=== PATIENT | female | born 1970 | race Caucasian/White ===

== ENCOUNTER 2017-12-13 14:25 | Inpatient (IN) | payer MEDICAID, OTHER ==
[~2017-12-13] VITALS: Ht 167.6 cm; Wt 64.2 kg
[2017-12-13] MEDS ORDERED: SODIUM CHLORIDE 0.9% 1,000ML IVBOLUS ONE (15:00)
[2017-12-13] MEDS ORDERED: SODIUM CHLORIDE FLUSH 10ML SYR IVF ONE (15:00)
[2017-12-13] MEDS ORDERED: FAMOTIDINE 20 MG/2 ML IVP ONE (15:00)
[2017-12-13] MEDS ORDERED: ACETAMINOPHEN 500 MG TABLET PO ONE (15:00)
[2017-12-13 15:17] LABS: BASOPHILS # (AUTO) 0.03 x10^3/uL (0-0.1); BASOPHILS % (AUTO) 1 % (0-1); EOSINOPHILS # (AUTO) 0.03 x10^3/uL (0-0.4); EOSINOPHILS % (AUTO) 1 % (1-7); LYMPHOCYTES # (AUTO) 2.74 x10^3/uL (1-3.4); LYMPHOCYTES % (AUTO) 44 % (22-44); MD NO; MEAN CORPUSCULAR HEMOGLOBIN 32.3 pg (27.0-34.8); MEAN CORPUSCULAR HGB CONC 34.5 g/dL (32.4-35.8); MEAN CORPUSCULAR VOLUME 93.7 fL (80-100); MEAN PLATELET VOLUME 7.5 fL (7.4-10.4); MONOCYTES # (AUTO) 0.47 x10^3/uL (0.2-0.8); MONOCYTES % (AUTO) 8 % (2-9); NEUTROPHILS % (AUTO) 48 % (42-75); PLATELET COUNT 256 x10^3/uL (130-400); RED BLOOD COUNT 5.13 x10^6/uL (3.82-5.3); RED CELL DISTRIBUTION WIDTH 15.6 % (9.6-15.2)
[2017-12-13 15:22] LABS: INTERNATIONAL NORMALIZED RATIO 1.03 (0.93-1.1); PROTHROMBIN TIME 10.6 Seconds (9.6-11.5)
[2017-12-13 15:23] LABS: ALANINE AMINOTRANSFERASE 54 U/L (12-78); ANION GAP 15 mmol/L (5-15); CALCIUM 8.6 mg/dL (8.5-10.1); CHLORIDE 99 mmol/L (98-107); CREATININE 0.55 mg/dL (0.55-1.02)
[2017-12-13 15:25] LABS: ALKALINE PHOSPHATASE 51 U/L (45-117); BILIRUBIN,TOTAL 1.1 mg/dL (0.2-1.0); TOTAL PROTEIN 8.1 g/dL (6.4-8.2)
[2017-12-13] MEDS ORDERED: ACETAMINOPHEN 500 MG TABLET ONE (15:31)
[2017-12-13] MEDS ORDERED: FAMOTIDINE 20 MG/2 ML ONE (15:31)
[2017-12-13 16:03] LABS: MICROSCOPIC AUTO
[2017-12-13 16:05] LABS: CULTURE INDICATED? YES
[2017-12-13] MEDS ORDERED: OMNIPAQUE 350 MG/ML, 100ML BOTTLE ONE (16:47)
[2017-12-13] MEDS ORDERED: PROMETHAZINE 25 MG/ML, 1ML ONE (17:35)
[2017-12-13] MEDS ORDERED: KETOROLAC 30 MG/1 ML ONE (17:36)
[2017-12-13] MEDS ORDERED: MORPHINE SULFATE 4 MG/ML, 1ML ONE (17:36)
[2017-12-13] MEDS ORDERED: NS + 20MEQ KCL 1,000 ML IV ONE (17:39)
[2017-12-13] MEDS ORDERED: MORPHINE SULFATE 4 MG/ML, 1ML IVPush PRN (18:00)
[2017-12-13] MEDS ORDERED: PROMETHAZINE 25 MG/ML, 1ML IM ONE (18:00)
[2017-12-13] MEDS ORDERED: NS + 20MEQ KCL 1,000 ML IV SCH (18:00)
[2017-12-13] MEDS ORDERED: KETOROLAC 30 MG/1 ML IVPush ONE (18:00)
[2017-12-13] MEDS ORDERED: morphine SULFATE 10 MG/ML, 1ML IVPush PRN (19:00)
[2017-12-13] MEDS ORDERED: ONDANSETRON ODT 4 MG PO PRN (19:00)
[2017-12-13] MEDS ORDERED: LABETALOL 5MG/ML, 20ML IVPush PRN (19:00)
[2017-12-13] MEDS ORDERED: POTASSIUM CHLORIDE 20 MEQ in SODIUM CHLORIDE 0.9% 250 ML IV ONE (19:00)
[2017-12-13] MEDS ORDERED: hydrALAzine 20 MG/ML, 1ML IVPush PRN (19:00)
[2017-12-13] MEDS ORDERED: ONDANSETRON 2MG/ML, 2ML IVPush PRN (19:00)
[2017-12-13] MEDS ORDERED: POLYETHYLENE GLYCOL 17 GM PACKET PO PRN (19:00)
[2017-12-13] MEDS ORDERED: BISACODYL 10 MG SUPP PR PRN (19:00)
[2017-12-13] MEDS ORDERED: LORazepam 2 MG/ML, 1ML IV PRN ×3 (19:00)
[2017-12-13] MEDS ORDERED: DOCUSATE 100 MG CAPSULE PO PRN (19:00)
[2017-12-13 19:14] VITALS: BP 127/82
[2017-12-13] MEDS: LACTATED RINGERS 1,000 ML IV SCH (19:27)
[2017-12-13] MEDS: NICOTINE 14MG/24 HR PATCH.TD24 TD SCH (19:27)
[2017-12-13] MEDS: LORazepam 2 MG/ML, 1ML IV PRN (19:45)
[2017-12-13 19:47] VITALS: BP 127/82
[2017-12-14 00:10] VITALS: BP 129/77
[2017-12-14] MEDS: LACTATED RINGERS 1,000 ML IV SCH ×4 (00:10→21:29)
[2017-12-14] MEDS: LORazepam 2 MG/ML, 1ML IV PRN ×4 (00:11→23:57)
[2017-12-14 05:33] LABS: BASOPHILS # (AUTO) 0.03 x10^3/uL (0-0.1); BASOPHILS % (AUTO) 1 % (0-1); EOSINOPHILS # (AUTO) 0.04 x10^3/uL (0-0.4); EOSINOPHILS % (AUTO) 1 % (1-7); LYMPHOCYTES # (AUTO) 2.51 x10^3/uL (1-3.4); LYMPHOCYTES % (AUTO) 36 % (22-44); MD NO; MEAN CORPUSCULAR HEMOGLOBIN 32.3 pg (27.0-34.8); MEAN CORPUSCULAR HGB CONC 34.1 g/dL (32.4-35.8); MEAN CORPUSCULAR VOLUME 94.6 fL (80-100); MEAN PLATELET VOLUME 7.7 fL (7.4-10.4); MONOCYTES # (AUTO) 0.73 x10^3/uL (0.2-0.8); MONOCYTES % (AUTO) 11 % (2-9); NEUTROPHILS # (AUTO) 3.59 x10^3/uL (1.8-6.8); NEUTROPHILS % (AUTO) 52 % (42-75); PLATELET COUNT 198 x10^3/uL (130-400); RED BLOOD COUNT 4.46 x10^6/uL (3.82-5.3); RED CELL DISTRIBUTION WIDTH 15.9 % (9.6-15.2)
[2017-12-14 05:39] LABS: ALANINE AMINOTRANSFERASE 41 U/L (12-78); ALBUMIN 3.3 g/dL (3.4-5.0); ANION GAP 8 mmol/L (5-15); CALCIUM 7.5 mg/dL (8.5-10.1); CHLORIDE 104 mmol/L (98-107); CREATININE 0.52 mg/dL (0.55-1.02)
[2017-12-14 05:41] LABS: ALKALINE PHOSPHATASE 43 U/L (45-117); BILIRUBIN,TOTAL 1.4 mg/dL (0.2-1.0); TOTAL PROTEIN 6.5 g/dL (6.4-8.2)
[2017-12-14] MEDS ORDERED: MAGNESIUM SULFATE PMX 2GM/50ML 50 ML IV ONE (07:00)
[2017-12-14 07:19] VITALS: BP 158/85
[2017-12-14] MEDS: POTASSIUM CHLORIDE 20 MEQ, MAGNESIUM SULFATE 1 GM, THIAMINE 200 MG, FOLIC ACID 1 MG, MV... IV SCH (08:06)
[2017-12-14] MEDS: PANTOPRAZOLE 40 MG IV IVPush SCH (08:06)
[2017-12-14 12:51] VITALS: BP 146/90
[2017-12-14] MEDS: NICOTINE 14MG/24 HR PATCH.TD24 TD SCH (18:34)
[2017-12-14 19:12] VITALS: BP 131/86
[2017-12-15 01:48] VITALS: BP 137/95
[2017-12-15] MEDS: LACTATED RINGERS 1,000 ML IV SCH (04:30)
[2017-12-15 06:03] LABS: BASOPHILS # (AUTO) 0.03 x10^3/uL (0-0.1); BASOPHILS % (AUTO) 1 % (0-1); EOSINOPHILS # (AUTO) 0.08 x10^3/uL (0-0.4); EOSINOPHILS % (AUTO) 1 % (1-7); LYMPHOCYTES # (AUTO) 2.08 x10^3/uL (1-3.4); LYMPHOCYTES % (AUTO) 32 % (22-44); MD NO; MEAN CORPUSCULAR HEMOGLOBIN 32.6 pg (27.0-34.8); MEAN CORPUSCULAR HGB CONC 34.4 g/dL (32.4-35.8); MEAN CORPUSCULAR VOLUME 94.9 fL (80-100); MEAN PLATELET VOLUME 7.6 fL (7.4-10.4); MONOCYTES # (AUTO) 0.69 x10^3/uL (0.2-0.8); MONOCYTES % (AUTO) 11 % (2-9); NEUTROPHILS # (AUTO) 3.63 x10^3/uL (1.8-6.8); NEUTROPHILS % (AUTO) 56 % (42-75); PLATELET COUNT 168 x10^3/uL (130-400); RED BLOOD COUNT 4.23 x10^6/uL (3.82-5.3); RED CELL DISTRIBUTION WIDTH 15.7 % (9.6-15.2)
[2017-12-15 06:14] LABS: ALANINE AMINOTRANSFERASE 32 U/L (12-78); ANION GAP 9 mmol/L (5-15); CALCIUM 7.6 mg/dL (8.5-10.1); CHLORIDE 99 mmol/L (98-107)
[2017-12-15 06:19] LABS: ALKALINE PHOSPHATASE 42 U/L (45-117); BILIRUBIN,TOTAL 1.1 mg/dL (0.2-1.0); CHOL/HDL RATIO 1.5; CHOLESTEROL, TOTAL 139 mg/dL (140-239); HDL CHOL % 65 % (28-40); HDL CHOLESTEROL (DIRECT) 91 mg/dL (40-60); LDL CHOLESTEROL,CALCULATED 38 mg/dL (54-169); LDL/HDL RATIO 0.4 (0.5-3.0); TOTAL PROTEIN 6.3 g/dL (6.4-8.2); TRIGLYCERIDES 50 mg/dL (50-200); VLDL CHOLESTEROL 10 mg/dL (0-25)
[2017-12-15 06:38] VITALS: BP 147/82
[2017-12-15] MEDS ORDERED: MAGNESIUM SULFATE PMX 2GM/50ML 50 ML IV ONE (07:30)
[2017-12-15] MEDS: POTASSIUM CHLORIDE 20 MEQ, MAGNESIUM SULFATE 1 GM, THIAMINE 200 MG, FOLIC ACID 1 MG, MV... IV SCH (09:45)
[2017-12-15] MEDS: NEUTRA PHOS K 250 MG TABLET PO SCH ×3 (09:45→21:12)
[2017-12-15] MEDS: PANTOPRAZOLE 40 MG IV IVPush SCH (09:46)
[2017-12-15] MEDS: LORazepam 2 MG/ML, 1ML IV PRN (09:46)
[2017-12-15] MEDS ORDERED: LORazepam 1MG TABLET PO PRN ×3 (12:00)
[2017-12-15 12:33] VITALS: BP 142/92
[2017-12-15] MEDS: MULTIVITAMIN 1 TABLET PO SCH (13:52)
[2017-12-15] MEDS: THIAMINE 100MG TABLET PO SCH (13:52)
[2017-12-15] MEDS: POTASSIUM CHLORIDE 20 MEQ TAB.ER.PRT PO SCH ×2 (13:53→21:12)
[2017-12-15] MEDS: LORazepam 0.5MG TABLET PO PRN ×2 (13:53→21:12)
[2017-12-15] MEDS: FOLIC ACID 1 MG TABLET PO SCH (13:53)
[2017-12-15 17:26] LABS: OCCULT BLOOD NEGATIVE (NEGATIVE)
[2017-12-15] MEDS: NICOTINE 14MG/24 HR PATCH.TD24 TD SCH (18:33)
[2017-12-15 21:04] VITALS: BP 126/87
[2017-12-16 03:41] VITALS: BP 154/90
[2017-12-16 06:13] LABS: ALBUMIN 3.6 g/dL (3.4-5.0); CALCIUM 8.6 mg/dL (8.5-10.1)
[2017-12-16 06:19] LABS: ALANINE AMINOTRANSFERASE 34 U/L (12-78); ALKALINE PHOSPHATASE 48 U/L (45-117); ANION GAP 10 mmol/L (5-15); BILIRUBIN,TOTAL 1.1 mg/dL (0.2-1.0); CHLORIDE 100 mmol/L (98-107); CREATININE 0.51 mg/dL (0.55-1.02); TOTAL PROTEIN 7.3 g/dL (6.4-8.2)
[2017-12-16 06:49] VITALS: BP 139/82
[2017-12-16] MEDS ORDERED: MAGNESIUM SULFATE PMX 2GM/50ML 50 ML IV ONE (08:00)
[2017-12-16] MEDS ORDERED: POTASSIUM CHLORIDE 20 MEQ TAB.ER.PRT PO ONE (08:00)
[2017-12-16] MEDS: PANTOPRAZOLE 40 MG IV IVPush SCH ×2 (09:42→09:57)
[2017-12-16] MEDS: THIAMINE 100MG TABLET PO SCH (09:42)
[2017-12-16] MEDS: MULTIVITAMIN 1 TABLET PO SCH (09:42)
[2017-12-16] MEDS: FOLIC ACID 1 MG TABLET PO SCH (09:43)
[2017-12-16 12:18] VITALS: BP 143/93
[2017-12-16] MEDS ORDERED: MULT1TAB60 PO (12:42)
[2017-12-16] MEDS ORDERED: FOLI-17 PO (12:42)
[2017-12-16] MEDS ORDERED: THIA100T67 PO (12:42)
== END 2017-12-16 14:40 | disposition home or self-care (01) | DRG 439 ==
LOC: ED 17:35 → EDIP 17:36 → ED 18:12 → 4EST 18:47
PROVIDERS: ADMIT Hospitalist; ATTEND Hospitalist
DX: K85.20 Alcohol induced acute pancreatitis without necrosis or infection (principal); F10.239 Alcohol dependence with withdrawal, unspecified; K92.1 Melena; D25.9 Leiomyoma of uterus, unspecified; E83.39 Other disorders of phosphorus metabolism; E83.42 Hypomagnesemia; E87.6 Hypokalemia; F12.90 Cannabis use, unspecified, uncomplicated; F17.200 Nicotine dependence, unspecified, uncomplicated; K76.0 Fatty (change of) liver, not elsewhere classified; K80.20 Calculus of gallbladder without cholecystitis without obstruction; Z66 Do not resuscitate; F41.9 Anxiety disorder, unspecified; Z80.0 Family history of malignant neoplasm of digestive organs; Z80.7 Family history of other malignant neoplasms of lymphoid, hematopoietic and related tissues
CPT/HCPCS: 36415; 99285; S0028; 74177; 76700; 80053; 80061; 81001; 82272; 83615; 83690; 83735; 84100; 84703; 85025; 85610; 85730; 87086; 96372; 96374; J1885; J2405; J2550; J3411; J3475; J3480; Q9967; C9113; J2060; J2270; J7030; J7050; J7120